=== PATIENT | male | born 1975 | race Caucasian/White ===

== ENCOUNTER → 2022-04-07 09:26 | Outpatient (CLI) | payer OTHER, SELFPAY ==
--- NOTE | 2022-04-07 | DI.RAD.S_ITS ---
PROCEDURE: XR FOOT RT MIN 3V INDICATIONS: RIGHT FOOT PAIN, GREAT TOE PARESTHESIA TECHNIQUE: 3 views of the foot were acquired. COMPARISON: None. FINDINGS: Bones: No fractures or dislocations. No suspicious bony lesions. Small plantar and dorsal calcaneal enthesophytes are seen. Soft tissues: No tibiotalar joint effusion. Achilles tendon appears normal. IMPRESSION: No right foot fracture or dislocation. Small calcaneal enthesophytes. Dictated by: Ravin Champagne M.D. on 04/07/2022 at 12:00 Approved by: Ravin Champagne M.D. on 04/07/2022 at 12:01
== END ==
PROVIDERS: PCP Internal Medicine; Referring Provider Internal Medicine; Visit Provider Internal Medicine
DX: M79.671 Pain in right foot (principal); R20.2 Paresthesia of skin; M77.31 Calcaneal spur, right foot
CPT/HCPCS: 73630

== ENCOUNTER → 2022-06-22 16:16 | Outpatient (CLI) | payer OTHER, SELFPAY ==
--- NOTE | 2022-06-22 16:24 | DI.RAD.S_ITS ---
PROCEDURE: XR RIBS LT MIN 3V W CXR1V INDICATIONS: LEFT RIB PAIN TECHNIQUE: 2 views of the left ribs were acquired, along with a single view chest. COMPARISON: None. FINDINGS: Surgical changes and devices: None. Bones and chest wall: Mildly displaced fracture of the anterior margin the left 8th rib for No suspicious bony lesions. Overlying soft tissues appear unremarkable. Lungs and pleura: No pleural effusions or pneumothorax. Lungs appear clear. Mediastinum: Mediastinal contours appear normal. Heart size is normal. IMPRESSION: Left 8th rib fracture. Dictated by: Yee Phoenix MD, PhD on 06/22/2022 at 17:08 Approved by: Yee Phoenix MD, PhD on 06/22/2022 at 17:09
== END ==
LOC: LAB 16:16 → RAD 16:23
PROVIDERS: PCP Internal Medicine; Referring Provider Internal Medicine; Visit Provider Internal Medicine
DX: S22.32XA Fracture of one rib, left side, initial encounter for closed fracture (principal); R07.81 Pleurodynia
CPT/HCPCS: 71101

== ENCOUNTER → 2022-07-05 14:15 | Outpatient (CLI) | payer OTHER, SELFPAY ==
--- NOTE | 2022-07-05 14:25 | DI.DEXA.S_ITS ---
Indication: Fracture of rib Referring Provider: ENZO KELLY Study: Bone densitometry was performed. Exam Date: July 05, 2022 Accession number: [id number] Bone Density: Region BMD T-score Z-score Classification AP Spine(L1-L4) 0.985 -0.7 Femoral Neck (Left) 0.642 -1.5 Total Hip (Left) 0.865 -0.9 Femoral Neck (Right) 0.651 -1.4 Total Hip (Right) 0.897 -0.6 Total Hip Mean 0.881 -0.8 World Health Organization criteria for BMD impression classify patients as: Normal (T-score at or above -1.0), Osteopenia (T-score between -1.0 and -2.5), or Osteoporosis (T-score at or below -2.5). 10-year Fracture Risk: FRAX not reported because: Man under age 50 Impression: The patient's bone mass is within expected range for age, gender and ethnicity. Discussion: BONE DENSITY IS WITHIN EXPECTED LIMITS FOR AGE, SEX AND RACE. Bone density is within expected limits for age, sex and race at all sites measured. The patient should follow a healthful lifestyle (good nutrition with adequate calcium and vitamin D, and appropriate weight-bearing exercise). Follow-Up: Consider repeating this study in 5 years or sooner if there is some new clinical indication. Reported by: ARNOLDO VILLALOBOS MD on 07/06/2022 10:01:00 AM.
== END ==
PROVIDERS: PCP Internal Medicine; Referring Provider Internal Medicine; Visit Provider Internal Medicine
DX: M84.48XA Pathological fracture, other site, initial encounter for fracture (principal); E29.1 Testicular hypofunction; E22.1 Hyperprolactinemia
CPT/HCPCS: 77080

== ENCOUNTER → 2023-02-07 12:20 | Outpatient (CLI) | payer OTHER, SELFPAY ==
--- NOTE | 2023-02-07 12:25 | DI.RAD.S_ITS ---
PROCEDURE: XR FINGER RT MIN 2V INDICATIONS: right finger injury TECHNIQUE: AP hand, 2 views of the 3rd finger(s) acquired. COMPARISON: None. FINDINGS: Bones: No fractures or dislocations. No suspicious bony lesions. Soft tissues: No suspicious soft tissue calcifications. IMPRESSION: Unremarkable 3rd finger radiographs Approved by: Reinier Davidson M.D. on 02/07/2023 at 15:12
== END ==
PROVIDERS: PCP Internal Medicine; Referring Provider Internal Medicine; Visit Provider Internal Medicine
DX: M65.331 Trigger finger, right middle finger (principal)
CPT/HCPCS: 73140